=== PATIENT | female | born 1945 | race Hispanic/Latino ===

== ENCOUNTER 2018-09-04 06:23 | Day surgery (SDC) | payer MEDICARE ==
[2018-09-03 11:49] LABS: Absolute Lymphocytes (CBC) 2.5 K/uL (0.7-4.9); Absolute Monocytes 0.3 K/uL (0.1-1.3); Absolute Neutrophil 4.4 K/uL (1.8-8.0); Basophils % 0.4 % (0-1.3); Hematocrit 40.5 % (36.0-45.0); Lymphocytes % 34.1 % (15.3-44.8); MPV 9.7 fL (7.6-11.3); Monocytes % 4.2 % (3.3-12.3); RBC Red Blood Cell Count 4.89 M/uL (3.86-4.86)
[2018-09-03 12:00] LABS: Potassium 4.1 mmol/L (3.5-5.1)
--- NOTE | 2018-09-03 12:44 | EKG ---
Test Date: 2018-09-03 Test Time: 11:23:49 Freelance Translator: KATHERINE MEASUREMENT RESULTS: Intervals: Rate: 60 MS: 150 QRSD: 82 QT: 436 QTc: 436 Brandon: P: 54 MS: 150 QRS: 26 T: 58 INTERPRETIVE STATEMENTS: Normal sinus rhythm Normal ECG Compared to ECG 08/18/2013 14:16:14 Sinus bradycardia no longer present Electronically Signed On 09-03-18 12:43:52 CDT by Jaziel Cardona
[~2018-09-04 06:23] MED LIST: CLINDAMYCIN INJ 900 MG in NA CHLORIDE 0.9% 50 ML IV ONE
--- OUTSIDE RECORDS SUMMARY | 2018-09-04 06:25 | XMS REPORT ---
:1945 [facility] [place] [address] Care Team Providers Name Role Phone Unavailable Unavailable Unavailable Problems This patient has no known problems. Allergies, Adverse Reactions, Alerts This patient has no known allergies or adverse reactions. Medications This patient has no known medications.
[2018-09-04] MEDS ORDERED: NA CHLORIDE 0.9% 1,000 ML ONE (07:10)
[2018-09-04] MEDS ORDERED: CLINDAMYCIN 900MG/D5W 900 MG/50 ML IVPB IV ONE (07:10)
[2018-09-04] MEDS ORDERED: PROPOFOL 200 MG/20 ML VIAL IV ONE (07:29)
[2018-09-04] MEDS ORDERED: LIDOCAINE 2% MPF 5 ML VIAL ONE (07:30)
[2018-09-04] MEDS ORDERED: ONDANSETRON 4 MG/2 ML VIAL ONE (07:30)
[2018-09-04] MEDS ORDERED: MIDAZOLAM HCL 2 MG/2 ML INJ ONE (07:30)
[2018-09-04] MEDS ORDERED: FENTANYL CITR 100 MCG/2 ML ONE (07:30)
[2018-09-04] MEDS ORDERED: TRAMADOL 37.5mg/APAP 325mg PER TAB ONE (09:20)
[2018-09-04 09:55] VITALS: BP 118/53; TEMP 98.1; O2SAT 99
--- NOTE | 2018-09-04 18:25 | OP ---
Date of Procedure: 09/04/2018 Surgeon: Segundo Knowles MD Preoperative Diagnosis: Left fourth trigger digit. Postoperative Diagnosis: Left fourth trigger digit. Procedure: Left fourth trigger digit open release. Estimated Blood Loss: Less than 3 cc. Complications: No complications. Specimens: No pathology specimen sent. Indication For Operation: Ms. Bullock is a 73-year-old woman who came to my office complaining of p ain in her left hand. She says that this has become quite bothersome for her. She says she does marilynn e tamales at home and despite the pain is also is limiting her functional activities as it does click . On physical examination, she has an obvious trigger digit. We then discussed operative and nonope rative management including corticosteroid injection or other options. She says she understands thin gs as presented, and at this point, would like operative release of her fourth trigger digit. Procedure In Detail: The patient was taken to the operating room, placed in supine position. Genera l anesthesia was obtained by the staff. Following this, a well-padded tourniquet was placed on super ior left arm. The left upper extremity was then prepped and draped in usual sterile fashion. The ar m was then elevated, but not exsanguinated. Tourniquet was raised. A standard transverse incision w as made directly over the A1 luis e through skin only. Mosquito was used for blunt dissection, which allowed further visualization of the fourth flexor tendon. The A1 luis e was easily identified. It was divided in its midsubstance throughout until there were no constricting bands, both proximally a nd distally. The finger was then brought through full range of motion, there was found to be no sign of abnormal tendon motion. Gentle irrigation was done. The skin was closed using nylon. The patie nt was placed in a well-padded sterile dressing, awakened, and taken to recovery room in good conditi on. No complications. SE/MODL Voice ID: [id number] Report ID: [id number]
== END 2018-09-04 09:45 | disposition home or self-care (01) ==
LOC: OR 06:23
PROVIDERS: ATTEND Orthopaedic Surgery
PROC: 0LN80ZZ Release Left Hand Tendon, Open Approach (ICD-10-PCS; principal; 2018-09-04 07:30)
DX: M65.342 Trigger finger, left ring finger (principal); E11.9 Type 2 diabetes mellitus without complications; J44.9 Chronic obstructive pulmonary disease, unspecified
CPT/HCPCS: 26055; 93005; 85025; 80048; 36415; 82962 ×2; J2704; J2250; J3010; J7030; J2405

== ENCOUNTER 2020-01-03 15:27 | Emergency (ER) | payer MEDICARE ==
--- OUTSIDE RECORDS SUMMARY | 2020-01-03 15:38 | XMS REPORT | Continuity of Care Document ---
:1945 Author Organization [facility] t Address [address] [place] [address] Care Team Providers Name Role Phone Joaquín WESTON, K.HHesham Attending Clinician Dustin Hui MD Attending Clinician Kristal DOMINGUEZ Attending Clinician Problems This patient has no known problems. Allergies, Adverse Reactions, Alerts This patient has no known allergies or adverse reactions. Medications This patient has no known medications. Procedures This patient has no known procedures. Encounters Start End Encounter Admission Attending Care Care Encounter Source Date/Time Date/Time Type Type Clinicians Facility Department ID 2019-11-30 2019-11-30 Telephone SAMANTHA Yanes [id number] 00:00:00 00:00:00 Tavia Wilde [id number] Waqas [id number] Thad [phone] nal 059 [facility] 2019-11-09 2019-11-09 Office SAMANTHA Hui [id number] 14:01:49 14:16:49 Visit Eduardo Wilde [id number] Dustin Alan [id number] Thad [id number] nal 044 [facility] 2019-11-06 2019-11-06 Refill SAMANTHA Giraldo [id number] 00:00:00 00:00:00 [facility] [id number] Chani [id number] Thad [phone] [facility] 044 [address] One Results This patient has no known results.
[2020-01-03 17:03] LABS: Urine Blood NEGATIVE (NEG); Urine Glucose NEGATIVE (NEG); Urine Protein NEGATIVE (NEG); Urine pH 5.5 (5.0-7.0)
--- NOTE | 2020-01-03 17:29 | ER ---
Nurse's Notes [facility] Name: Yuliya Bullock Age: 74 yrs Sex: Female : 1945 Arrival Date: 01/03/2020 Time: 15:29 Bed 18 Private MD: Diagnosis: Rectocele Presentation: 01/02 15:54 Chief complaint: Patient states: Pain on the suprapubic area, described as pressure, ca1 started 6 days ago. Hx of Ovarian Ca 7 years ago. Denies urinary symptoms. Coronavirus screen: Client denies travel out of the [place] in the last 14 days. At this time, the client does not indicate any symptoms associated with coronavirus-19. Ebola Screen: Patient negative for fever greater than or equal to 101.5 degrees Fahrenheit, and additional compatible Ebola Virus Disease symptoms Patient denies exposure to infectious person. Patient denies travel to an Ebola-affected area in the 21 days before illness onset. No symptoms or risks identified at this time. Initial Sepsis Screen: Does the patient meet any 2 criteria? No. Patient's initial sepsis screen is negative. Does the patient have a suspected source of infection? No. Patient's initial sepsis screen is negative. Risk Assessment: Do you want to hurt yourself or someone else? Patient reports no desire to harm self or others. Onset of symptoms was January 03, 2020. 15:54 Method Of Arrival: Ambulatory ca1 15:54 Acuity: ESTHER 3 ca1 Historical: - Allergies: 15:58 PENICILLINS; ca1 15:58 Amoxicillin; ca1 - Home Meds: 15:58 Metformin Oral [Active]; ca1 - PMHx: 15:58 Diabetes - NIDDM; ca1 - PSHx: 15:58 Appendectomy; Hysterectomy; ca1 - Immunization history:: Adult Immunizations up to date. - Social history:: Smoking status: Patient/guardian denies using tobacco, the patient reports quitting approximately 25 years ago. Screenin:06 Abuse screen: Denies threats or abuse. Nutritional screening: No deficits noted. tw2 Tuberculosis screening: No symptoms or risk factors identified. Fall Risk None identified. Assessment: 17:12 General: Appears in no apparent distress. slender, well groomed, Behavior is calm, tw2 cooperative, appropriate for age. Pain: Denies pain. Neuro: Level of Consciousness is awake, alert, obeys commands, Oriented to person, place, time, situation. Cardiovascular: Heart tones S1 S2 Patient's skin is warm and dry. Respiratory: Airway is patent Respiratory effort is even, unlabored, Respiratory pattern is regular, symmetrical, Breath sounds are clear bilaterally. GI: No signs and/or symptoms were reported involving the gastrointestinal system. Abdomen is flat, Bowel sounds present X 4 quads. : Reports i feel a fullness and pressure when i medicinal plant picker my grandson in my vagina. EENT: No signs and/or symptoms were reported regarding the EENT system. Derm: No signs and/or symptoms reported regarding the dermatologic system. Musculoskeletal: Range of motion: intact in all extremities. 18:06 Reassessment: Patient appears in no apparent distress at this time. No changes from tw2 previously documented assessment. Patient and/or family updated on plan of care and expected duration. Pain level reassessed. Patient is alert, oriented x 3, equal unlabored respirations, skin warm/dry/pink. Vital Signs: 15:54 BP 116 / 68; Pulse 75; Resp 15 S; Temp 97.2(TE); Pulse Ox 99% on R/A; Weight 62.6 kg ca1 (R); Height 5 ft. 0 in. (152.40 cm) (R); 17:59 BP 138 / 62; Pulse 67; Resp 17; Pulse Ox 99% on R/A; dh4 15:54 Body Mass Index 26.95 (62.60 kg, 152.40 cm) ca1 ED Course: 15:29 Patient arrived in ED. ag5 15:57 Triage completed. ca1 15:58 Arm band placed on right wrist. ca1 16:43 Placed in gown. Bed in low position. Pulse ox on. NIBP on. tw2 16:51 Andre Elliott PA is PHCP. jr8 16:51 Mk Elias MD is Attending Physician. jr8 17:12 served as slot floorman for vaginal exam at this time. tw2 17:28 Vandana Anthony MD is Referral Physician. jr8 Administered Medications: No medications were administered Outcome: 17:28 Discharge ordered by . jr8 18:07 Patient left the ED. tw2 Signatures: Gabriela Lazo, RN RN aa5 Andre Elliott PA PA jr8 Kimberly Mccain RN RN tw2 Siomara Velázquez RN RN ca1 Rosa, aura 5 Celestino Reagan 4 Corrections: (The following items were deleted from the chart) 19:38 16:44 Gabriela Lazo RN is Primary Nurse. aa5 aa5
--- NOTE | 2020-01-03 17:29 | EDPHYS ---
Physician Documentation [facility] Name: Yuliya Bullock Age: 74 yrs Sex: Female : 1945 Arrival Date: 01/03/2020 Time: 15:29 Bed 18 Private MD: Mk Cai HPI: 01/02 20:40 This 74 yrs old Female presents to ER via Ambulatory with complaints of jr8 vaginal problem. 20:40 Onset: The symptoms/episode began/occurred gradually. Associated signs and symptoms: jr8 The patient has no apparent associated signs or symptoms. Modifying factors: The patient symptoms are alleviated by nothing, the patient symptoms are aggravated by standing up and with abdominal motions . The patient has not experienced similar symptoms in the past. The patient has not recently seen a physician. Patient stated that she felt bulging like sensation in vaginal region at floor of vagina. Stated that it is worse with standing and abdominal pressure. Told her oncologist about this who ordered CT and lab work to be done this week. 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 Stated that she has structures assembler appointment but could not get into her until this up coming month . Historical: - Allergies: 15:58 PENICILLINS; ca1 15:58 Amoxicillin; ca1 - Home Meds: 15:58 Metformin Oral [Active]; ca1 - PMHx: 15:58 Diabetes - NIDDM; ca1 - PSHx: 15:58 Appendectomy; Hysterectomy; ca1 - Immunization history:: Adult Immunizations up to date. - Social history:: Smoking status: Patient/guardian denies using tobacco, the patient reports quitting approximately 25 years ago. ROS: 20:40 Eyes: Negative for injury, pain, redness, and discharge, ENT: Negative for injury, jr8 pain, and discharge, Neck: Negative for injury, pain, and swelling, Cardiovascular: Negative for chest pain, palpitations, and edema, Respiratory: Negative for shortness of breath, cough, wheezing, and pleuritic chest pain, Abdomen/GI: Negative for abdominal pain, nausea, vomiting, diarrhea, and constipation, Back: Negative for injury and pain, MS/Extremity: Negative for injury and deformity, Skin: Negative for injury, rash, and discoloration, Neuro: Negative for headache, weakness, numbness, tingling, and seizure. 20:40 : Positive for vaginal pressure . Exam: 20:40 Cardiovascular: Regular rate and rhythm with a normal S1 and S2. No gallops, murmurs, jr8 or rubs. Normal PMI, no JVD. No pulse deficits. Respiratory: Lungs have equal breath sounds bilaterally, clear to auscultation and percussion. No rales, rhonchi or wheezes noted. No increased work of breathing, no retractions or nasal flaring. Abdomen/GI: Soft, non-tender, with normal bowel sounds. No distension or tympany. No guarding or rebound. No evidence of tenderness throughout. Back: No spinal tenderness. No costovertebral tenderness. Full range of motion. Skin: Warm, dry with normal turgor. Normal color with no rashes, no lesions, and no evidence of cellulitis. MS/ Extremity: Pulses equal, no cyanosis. Neurovascular intact. Full, normal range of motion. Neuro: Awake and alert, GCS 15, oriented to person, place, time, and situation. Cranial nerves II-XII grossly intact. Motor strength 5/5 in all extremities. Sensory grossly intact. Cerebellar exam normal. Normal gait. 20:40 : CVA tenderness, is absent, Pelvic Exam: External exam: is normal, no appreciated Bartholin's cyst, no erythema, not excoriated, no evidence of foreign body, no lesions, no ulcerations, no warts seen, bimanual exam reveals soft tissue non painful bulging noted to base of vagina extending downward to perineal region. Vaginal tissue in this region appears normal and not friable. Can be manipulated and reduced to an extent. No other abnormalities noted , Bladder: is normal, non-distended, non-tender. Vital Signs: 15:54 BP 116 / 68; Pulse 75; Resp 15 S; Temp 97.2(TE); Pulse Ox 99% on R/A; Weight 62.6 kg ca1 (R); Height 5 ft. 0 in. (152.40 cm) (R); 17:59 BP 138 / 62; Pulse 67; Resp 17; Pulse Ox 99% on R/A; dh4 15:54 Body Mass Index 26.95 (62.60 kg, 152.40 cm) ca1 MDM: 16:53 Patient medically screened. [facility] 17:25 Data reviewed: vital signs, nurses notes, lab test result(s), and as a result, I will jr8 discharge patient. Data interpreted: Pulse oximetry: on room air is 99 %. Interpretation: normal. Counseling: I had a detailed discussion with the patient and/or guardian regarding: the historical points, exam findings, and any diagnostic results supporting the discharge/admit diagnosis, lab results, the need for outpatient follow up, a family practitioner, an OB/Gyne specialist, to return to the emergency department if symptoms worsen or persist or if there are any questions or concerns that arise at home. ED course: Detailed discussion with patient that at this time it appears that the soft tissue mass that she feels is compatible with a rectocele. That she is not having major bowel or bladder dysfunction. No abdominal pain, and no other surgically emergent findings on physical exam. She is already scheduled for CT and blood work this week. Recommended keeping that to r/o other causes but if negative to see her gynecologic surgeon. If worse to come back for further evaluation but no other emergent tests need to be done at this time. Patient comfortable with this plan and will continue f/u and already scheduled tests . 01/02 16:54 Order name: Urine Dipstick--Ancillary (enter results); Complete Time: 17:15 bd 01/02 17:24 Order name: Urine Microscopic Only jr8 Administered Medications: No medications were administered Disposition: 01/03 08:21 Co-signature as Attending Physician, Mk Elias MD I agree with the assessment and gneeva plan of care. Disposition: 01/03/20 17:28 Discharged to Home. Impression: Rectocele. - Condition is Stable. - Discharge Instructions: Pelvic Organ Prolapse. - Medication Reconciliation Form, Thank You Letter, Antibiotic Education, Prescription Opioid Use form. - Follow up: Vandana Anthony MD; When: 7 - 10 days; Reason: Recheck today's complaints, Continuance of care, Re-evaluation by your physician. - Problem is new. - Symptoms are unchanged. Signatures: Dispatcher [employer] Mk Chapman MD MD cha Roszak, Josh, PA PA jr8 Kimberly Mccain RN RN tw2 Siomara Velázquez RN RN ca1 Corrections: (The following items were deleted from the chart) 01/02 18:07 17:28 01/03/2020 17:28 Discharged to Home. Impression: Rectocele. Condition is Stable. tw2 Forms are Medication Reconciliation Form, Thank You Letter, Antibiotic Education, Prescription Opioid Use. Follow up: Vandana Anthony; When: 7 - 10 days; Reason: Recheck today's complaints, Continuance of care, Re-evaluation by your physician. Problem is new. Symptoms are unchanged. jr8
[2020-01-03 18:58] LABS: Urine Bacteria <20 /HPF (<20); Urine Culture Reflex Order NOT NEEDED; Urine RBC <5 /HPF (NONE SEEN)
[2020-01-03 19:38] VITALS: TEMP 97.2; O2SAT 99
[2020-01-03 19:39] VITALS: BP 138/62
== END 2020-01-03 18:07 | disposition home or self-care (01) ==
LOC: ER 15:27
DX: N81.6 Rectocele (principal); E11.9 Type 2 diabetes mellitus without complications; Z88.0 Allergy status to penicillin; Z88.1 Allergy status to other antibiotic agents
CPT/HCPCS: 81003; 81015; 99282